=== PATIENT | male | born 1935 | race Caucasian/White ===

== ENCOUNTER → 2017-10-30 | Outpatient (CLI) | payer OTHER, MEDICARE | LOC: FIMAGING 12:14 | PROVIDERS: ATTEND Psychiatry & Neurology Neurology | DX: G31.9 Degenerative disease of nervous system, unspecified (principal); G40.109 Localization-related (focal) (partial) symptomatic epilepsy and epileptic syndromes with simple partial seizures, not intractable, without status epilepticus ==

== ENCOUNTER → 2017-12-04 | Outpatient (CLI) | payer OTHER, MEDICARE ==
--- NOTE | 2017-12-08 04:25 | CPEEG ---
[f rep st] ELECTROENCEPHALOGRAM FOUR-HOUR VIDEO EEG DATE OF STUDY: 12/04/2017 DATE OF INTERPRETATION: 12/07/2017. INTERPRETATION: This 4-hour video EEG recording is abnormal due to the presence of frequent potentially epileptogenic abnormalities over the right anterior temporal head region. In addition, there were occasional, independent potentially epileptogenic abnormalities over the left anterior temporal head region. 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 REPORT: This 4-hour video EEG contains 10 Hz alpha activity over the posterior head regions. There was no abnormal activation at rest, during photic stimulation or hyperventilation. The patient became drowsy and fell asleep during the recording. The primary feature of this recording was the presence of right temporal sharp waves (maximal at electrodes T4 and F8) during drowsiness and sleep. In addition, there was right temporal intermittent rhythmic delta activity (TIRDA). There were also occasional independent left temporal sharp waves present (maximal at electrodes F7 and T3). These were significantly less frequent than the right temporal sharp waves and had a more blunted morphology. No seizures were recorded during the video EEG monitoring session. /[id number]/MODL MTDD
== END ==
LOC: FCPNEURO 07:45
PROVIDERS: ATTEND Psychiatry & Neurology Neurology
DX: G40.109 Localization-related (focal) (partial) symptomatic epilepsy and epileptic syndromes with simple partial seizures, not intractable, without status epilepticus (principal)

== ENCOUNTER → 2017-12-11 | Outpatient (CLI) | payer OTHER, MEDICARE | LOC: FIMAGING 13:42 | PROVIDERS: ATTEND Psychiatry & Neurology Neurology | DX: Z13.820 Encounter for screening for osteoporosis (principal); M80.08XA Age-related osteoporosis with current pathological fracture, vertebra(e), initial encounter for fracture; Z85.46 Personal history of malignant neoplasm of prostate ==